=== PATIENT | female | born 1970 | race Caucasian/White ===

== ENCOUNTER 2017-12-19 17:57 | Emergency (ER) | payer OTHER ==
[~2017-12-19] VITALS: Ht 162.6 cm; Wt 65.8 kg
[2017-12-19] MEDS ORDERED: SEROQUEL300 MG (18:08)
[2017-12-19] MEDS ORDERED: ALBUTEROL0.63 MG/3 IH (18:09)
[2017-12-19] MEDS ORDERED: WELLBUTRIN XL300 MG PO (18:09)
== END 2017-12-19 22:18 | disposition home or self-care (01) ==
LOC: ER 17:57
DX: J45.998 Other asthma (principal)